=== PATIENT | female | born 1940 | race Caucasian/White ===

== ENCOUNTER 2021-11-12 20:31 | Emergency (ER) | payer OTHER ==
[~2021-11-12] VITALS: Ht 162.6 cm; Wt 68.0 kg
--- NOTE | 2021-11-12 20:40 | NUR ---
BRIAN FROM HOME C/O "CHEST PRESSURE" RADIATING TO LEFT ARM. GIVEN 1 NITRO SPRAY AND 324MG ASPIRIN WITH RELIEF. NO C/O ANXIETY. PATIENT ALERT AND ORIENTED X3. AMBULATORY WITH NON LABORED BREATHING. PLACED IN BED 03 ON MONITOR AND POX. AWAITING MD CL[place]ON.
--- NOTE | 2021-11-12 20:50 | NUR ---
COVID SWAB DONE AND SENT TO LAB
--- NOTE | 2021-11-12 20:50 | NUR ---
BLOOD COLLECTED AND SENT TO LAB
--- NOTE | 2021-11-12 20:54 | NUR ---
EMT @ BEDSIDE FOR EKG
[2021-11-12 21:53] LABS: BASOPHILS # (AUTO) 0.1 K/uL (0.0-0.2); EOSINOPHILS % (AUTO) 2.1 % (0.0-6.0); HEMATOCRIT 39 % (33-45); LYMPHOCYTES # (AUTO) 1.1 K/uL (0.8-4.8); LYMPHOCYTES % (AUTO) 15.5 % (20.0-44.0); MEAN CORPUSCULAR HGB CONC 33 g/dl (31.0-36.0); MEAN CORPUSCULAR VOLUME 84 fL (82-100); MONOCYTES # (AUTO) 0.6 K/uL (0.1-1.30); MONOCYTES % (AUTO) 8.3 % (2.0-12.0); NEUTROPHILS # (AUTO) 5.2 K/uL (1.8-8.9); NEUTROPHILS % (AUTO) 73.1 % (43.0-81.0); PLATELET COUNT (AUTO) 234 K/uL (150-450); RED BLOOD CELL COUNT(AUTO) 4.64 MIL/uL (4.0-5.2); WHITE BLOOD COUNT (AUTO) 7.1 K/uL (4.3-11.0)
--- NOTE | 2021-11-12 21:59 | NUR ---
CALLED [facility] TO INITIATE TRANSFER OF PATIENT
--- NOTE | 2021-11-12 22:14 | NUR ---
[facility] [phone]
--- NOTE | 2021-11-12 22:21 | NUR ---
CALLED [facility], AWAITING CALL BACK FROM
--- NOTE | 2021-11-12 22:34 | NUR ---
TROPONIN 125; JENS VU AWARE
[2021-11-12] MEDS ORDERED: ASPIRIN 325 MG TABLET ONE (22:37)
[2021-11-12] MEDS: ASPIRIN 325 MG TABLET PO ONE (22:43)
--- NOTE | 2021-11-12 22:53 | NUR ---
PT IS SLEEPING, RESTING COMFORTABLY IN BED, EASILY AROUSABLE. WILL CONTINUE TO MONITOR
[2021-11-12 22:54] LABS: CALCIUM, SERUM 8.8 mg/dL (8.5-10.1); CARBON DIOXIDE 25 mmol/L (21-32); CHLORIDE 104 mmol/L (98-107); CREATININE 1.3 mg/dL (0.6-1.3); GLUCOSE 156 mg/dL (74-106); POTASSIUM 4.2 mmol/L (3.5-5.1); SODIUM SERUM 138 mmol/L (136-145); UREA NITROGEN, BLOOD 30 mg/dL (7-18)
--- NOTE | 2021-11-12 23:32 | NUR ---
LAB REPORTED TROPONIN 130 FROM 125
[2021-11-13 02:30] VITALS: BP 151/73
--- NOTE | 2021-11-13 02:32 | NUR ---
NAJMA NARVAEZ CALLED. SPOKE WITH CORA FRANK ACCEPTED UNDER DR. DYLON GALLARDO DIRECT ADMIT TO 3102 AT [facility] [phone] FOR REPORT ALS TRAN[facility]ORT ETA IS [phone]
--- NOTE | 2021-11-13 03:00 | NUR ---
REPORT GIVEN TO LANCE PERRIN FOR [facility]
--- NOTE | 2021-11-13 03:46 | NUR ---
REPORT GIVEN TO EMT FROM [facility] FOR [facility]. PT TRANSFERRING TO [facility] Addendum: 11/13/21 at 0347 by [facility]
== END 2021-11-13 04:02 | disposition short-term general hospital (02) ==
LOC: ER 20:37 → EDBD 20:37 → ER 11-13 04:02
DX: R07.9 Chest pain, unspecified (principal); Z20.822 Contact with and (suspected) exposure to COVID-19; Z88.2 Allergy status to sulfonamides; I10 Essential (primary) hypertension; I49.1 Atrial premature depolarization
CPT/HCPCS: 36415; 71045; 80048; 84484 ×2; 85025; 87426; 93005; 99285; C9803

== ENCOUNTER 2024-07-11 05:36 | Emergency (ER) | payer OTHER ==
[~2024-07-11] VITALS: Ht 162.6 cm; Wt 68.0 kg
[2024-07-11 06:00] LABS: BASOPHILS # (AUTO) 0.1 K/uL (0.0-0.2); EOSINOPHILS # (AUTO) 0.2 K/uL (0.0-0.7); HEMATOCRIT 36 % (33-45); HEMOGLOBIN 12.1 g/dL (11.5-14.8); LYMPHOCYTES # (AUTO) 1.4 K/uL (0.8-4.8); LYMPHOCYTES % (AUTO) 23.3 % (20.0-44.0); MEAN CORPUSCULAR HEMOGLOBIN 29 PG (26.0-33.0); MEAN CORPUSCULAR HGB CONC 34 g/dl (31.0-36.0); MEAN CORPUSCULAR VOLUME 86 fL (82-100); MONOCYTES # (AUTO) 0.6 K/uL (0.1-1.30); MONOCYTES % (AUTO) 9.9 % (2.0-12.0); NEUTROPHILS # (AUTO) 3.7 K/uL (1.8-8.9); NEUTROPHILS % (AUTO) 61.8 % (43.0-81.0); PLATELET COUNT (AUTO) 155 K/uL (150-450); RED BLOOD CELL COUNT(AUTO) 4.21 MIL/uL (4.0-5.2); RED CELL DISTRIBUTION WIDTH 14.6 % (11.5-15.0)
[2024-07-11 06:14] LABS: ALANINE AMINOTRANSFERASE 35 U/L (12-78); ALBUMIN 3.1 g/dL (3.4-5.0); ALKALINE PHOSPHATASE 94 U/L (46-116); ASPARTATE AMINOTRANSFERASE 36 U/L (15-37); BILIRUBIN,DIRECT 0.1 mg/dL (0.0-0.2); BILIRUBIN,TOTAL 0.4 mg/dL (0.2-1.0); CALCIUM, SERUM 9.1 mg/dL (8.5-10.1); GLUCOSE 89 mg/dL (74-106); LIPASE 221 U/L (16-77); UREA NITROGEN, BLOOD 30 mg/dL (7-18)
[2024-07-11 06:19] LABS: CARBON DIOXIDE 28 mmol/L (21-32)
[2024-07-11 06:22] LABS: CHLORIDE 110 mmol/L (98-107); POTASSIUM 4.4 mmol/L (3.5-5.1); SODIUM SERUM 145 mmol/L (136-145)
[2024-07-11] MEDS: IV NS 0.9% 1,000 ML BAG IV ONE (06:52)
[2024-07-11] MEDS ORDERED: MORPHINE SULFATE INJ 2 MG/ML DISP.SYRIN ONE (06:54)
[2024-07-11] MEDS ORDERED: KETOROLAC TROMETHAMINE 15 MG/ML VIAL ONE (06:55)
[2024-07-11 06:56] LABS: APPEARANCE,URINE CLEAR (CLEAR); BILIRUBIN,URINE NEGATIVE (NEGATIVE); BLOOD, URINE TRACE-INTA Ery/uL (NEGATIVE); COLOR,URINE YELLOW (YELLOW); KETONES,URINE NEGATIVE (NEGATIVE); LEUKOCYTE ESTERASE ,URINE TRACE (NEGATIVE); NITRITE, URINE NEGATIVE (NEGATIVE); PROTEIN,URINE NEGATIVE (NEGATIVE); UGLUCOSE NEGATIVE (NEGATIVE); UROBILINOGEN,URINE 0.2 EU/dL (0.2)
[2024-07-11] MEDS ORDERED: ONDANSETRON HCL/PF 4 MG/2 ML VIAL ONE (06:56)
[2024-07-11] MEDS ORDERED: LIDOCAINE 5% (PATCH) 1 EA PATCH TP ONE (06:56)
[2024-07-11] MEDS: MORPHINE SULFATE INJ 2 MG/ML DISP.SYRIN IV ONE (06:57)
[2024-07-11] MEDS: LIDOCAINE 5% (PATCH) 1 EA PATCH TP STA (06:57)
[2024-07-11] MEDS: ONDANSETRON HCL/PF 4 MG/2 ML VIAL IV ONE (06:57)
[2024-07-11] MEDS: KETOROLAC TROMETHAMINE 15 MG/ML VIAL IV ONE (07:04)
[2024-07-11 07:18] LABS: ADD URINE CULTURE YES; BACTERIA,URINE 1+ /HPF (None Seen); MUCUS,URINE Few /LPF (None Seen)
[2024-07-11] MEDS ORDERED: LIDO30AD10 TP (08:31)
[2024-07-11] MEDS ORDERED: AMOX-430 PO (08:31)
[2024-07-11] MEDS ORDERED: NAPR500T6 PO (08:31)
[2024-07-11] MEDS ORDERED: POLY119P PO (08:31)
[2024-07-11 11:05] VITALS: BP 122/53; TEMP 98; O2SAT 96
== END 2024-07-11 11:06 | disposition home or self-care (01) ==
LOC: ER 05:38
DX: K59.00 Constipation, unspecified (principal); N39.0 Urinary tract infection, site not specified; E78.5 Hyperlipidemia, unspecified; I10 Essential (primary) hypertension; I25.10 Atherosclerotic heart disease of native coronary artery without angina pectoris; Z95.5 Presence of coronary angioplasty implant and graft; Z88.2 Allergy status to sulfonamides
CPT/HCPCS: 99285; 74176; 96374; 96375; 96361; 85025; 80048; 87086; 83690; 80076; 81001; 36415; J2405; J2270; J1885

== ENCOUNTER 2024-07-28 09:16 | Emergency (ER) | payer OTHER ==
[~2024-07-28] VITALS: Ht 160 cm; Wt 72.6 kg
[~2024-07-28 09:16] MED LIST: AMOX-430 PO; LIDO30AD10 TP; NAPR500T6 PO; POLY119P PO
[2024-07-28] MEDS ORDERED: ONDANSETRON HCL/PF 4 MG/2 ML VIAL ONE (09:45)
[2024-07-28] MEDS ORDERED: PANTOPRAZOLE 40 MG VIAL ONE (09:45)
[2024-07-28] MEDS: PANTOPRAZOLE 40 MG VIAL IV ONE (09:50)
[2024-07-28 09:54] LABS: BASOPHILS % (AUTO) 0.2 % (0.0-2.0); EOSINOPHILS # (AUTO) 0.2 K/uL (0.0-0.7); EOSINOPHILS % (AUTO) 1.5 % (0.0-6.0); HEMATOCRIT 41 % (33-45); HEMOGLOBIN 13.4 g/dL (11.5-14.8); LYMPHOCYTES # (AUTO) 0.2 K/uL (0.8-4.8); LYMPHOCYTES % (AUTO) 1.8 % (20.0-44.0); MEAN CORPUSCULAR HEMOGLOBIN 28 PG (26.0-33.0); MEAN CORPUSCULAR HGB CONC 33 g/dl (31.0-36.0); MEAN CORPUSCULAR VOLUME 86 fL (82-100); MONOCYTES # (AUTO) 0.5 K/uL (0.1-1.30); MONOCYTES % (AUTO) 4.4 % (2.0-12.0); NEUTROPHILS # (AUTO) 10.3 K/uL (1.8-8.9); NEUTROPHILS % (AUTO) 92.1 % (43.0-81.0); PLATELET COUNT (AUTO) 182 K/uL (150-450); RED BLOOD CELL COUNT(AUTO) 4.78 MIL/uL (4.0-5.2); RED CELL DISTRIBUTION WIDTH 14.6 % (11.5-15.0); WHITE BLOOD COUNT (AUTO) 11.2 K/uL (4.3-11.0)
[2024-07-28] MEDS: ONDANSETRON HCL/PF 4 MG/2 ML VIAL IVP ONE (09:56)
[2024-07-28 10:15] LABS: CALCIUM, SERUM 9.7 mg/dL (8.5-10.1); CARBON DIOXIDE 27 mmol/L (21-32); CHLORIDE 104 mmol/L (98-107); CREATININE 1.5 mg/dL (0.6-1.3); GLUCOSE 124 mg/dL (74-106); SODIUM SERUM 135 mmol/L (136-145); UREA NITROGEN, BLOOD 40 mg/dL (7-18)
[2024-07-28 10:23] LABS: ALANINE AMINOTRANSFERASE 58 U/L (12-78); ALBUMIN 3.3 g/dL (3.4-5.0); ALKALINE PHOSPHATASE 123 U/L (46-116); ASPARTATE AMINOTRANSFERASE 46 U/L (15-37); BILIRUBIN,DIRECT 0.1 mg/dL (0.0-0.2); BILIRUBIN,TOTAL 0.4 mg/dL (0.2-1.0); LIPASE 117 U/L (16-77); TOTAL PROTEIN, SERUM 7.5 g/dL (6.4-8.2)
[2024-07-28 10:33] LABS: APPEARANCE,URINE CLEAR (CLEAR); BILIRUBIN,URINE NEGATIVE (NEGATIVE); BLOOD, URINE NEGATIVE Ery/uL (NEGATIVE); COLOR,URINE YELLOW (YELLOW); KETONES,URINE NEGATIVE (NEGATIVE); LEUKOCYTE ESTERASE ,URINE TRACE (NEGATIVE); NITRITE, URINE NEGATIVE (NEGATIVE); PROTEIN,URINE NEGATIVE (NEGATIVE); UGLUCOSE NEGATIVE (NEGATIVE); UROBILINOGEN,URINE 0.2 EU/dL (0.2)
[2024-07-28 10:45] LABS: ADD URINE CULTURE NO; BACTERIA,URINE Rare /HPF (None Seen); FINE GRANULAR CASTS,URINE Few /LPF (None Seen); HYALINE CASTS, URINE Few /LPF (None Seen); TRICHOMONAS,URINE None Seen /HPF (None Seen); URINE AMORPHOUS URATE Few /HPF (None Seen); YEAST,URINE None Seen /HPF (None Seen)
[2024-07-28] MEDS ORDERED: ONDA4TAB5 PO (11:39)
[2024-07-28] MEDS ORDERED: NITR100C6 PO (11:39)
[2024-07-28 15:38] VITALS: BP 125/70; TEMP 97.8; O2SAT 98
== END 2024-07-28 15:38 | disposition home or self-care (01) ==
LOC: ER 09:20
DX: R11.2 Nausea with vomiting, unspecified (principal); R19.7 Diarrhea, unspecified; D72.829 Elevated white blood cell count, unspecified; E78.5 Hyperlipidemia, unspecified; I10 Essential (primary) hypertension; I25.10 Atherosclerotic heart disease of native coronary artery without angina pectoris; I25.2 Old myocardial infarction; Z87.440 Personal history of urinary (tract) infections; Z88.2 Allergy status to sulfonamides
CPT/HCPCS: 99284; 96374; 96375; 93005; 85025; 80048; 83690; 80076; 81001; 36415; 84484; J2405; J2470